=== PATIENT | female | born 1940 | race Caucasian/White ===

== ENCOUNTER 2016-04-19 16:46 | Observation (INO) | payer MEDICARE ==
[2016-04-19 17:36] LABS: ABSOLUTE NEUTROPHIL COUNT 5.2 K/mm3 (1.8-7.7); BASO % 0.3 % (0.2-1.0); EOS # 0.1 (0.0-0.5); EOS % 1.5 % (0.9-2.9); HEMATOCRIT 44.9 % (37.0-47.0); HEMOGLOBIN 14.5 gm/l (12.0-16.0); IMM NEUT% 0.3 % (0-1); MEAN CELL VOLUME 91.6 fl (81.0-99.0); MEAN CORPUSCULAR HEMOGLOBIN 29.6 pg (27.0-31.0); MEAN CORPUSCULAR HGB CONC 32.3 g/dl (33.0-37.0); MEAN PLATELET VOLUME 14.1 fl (7.4-10.4); MONO # 0.4 (0.0-0.8); MONO % 5.2 % (4-12); NEUT % 66.7 % (43-75); PLATELET COUNT 102 K/mm3 (130-400); RED CELL DISTRIBUTION WIDTH 13.9 % (11.5-14.5)
[2016-04-19] MEDS ORDERED: ASPIRIN CHEWTAB 81 MG TABLET ONE (17:47)
[2016-04-19 17:51] LABS: ALB/GLOB RATIO 1.4 (>1.0); ALBUMIN 4.1 gm/dL (3.5-5.7); CALCIUM 9.7 mg/dL (8.6-10.3)
[2016-04-19] MEDS ORDERED: NITROGLYCERIN OINT 1 G (DOSE) ONE (18:01)
[2016-04-19] MEDS ORDERED: FUROSEMIDE 40 MG/4 ML VIAL ONE (18:16)
--- NOTE | 2016-04-19 18:17 | RAD ---
04/19/2016 6:11 PM CHEST - 2 VIEWS History: Chest pain, shortness of breath. Comparison: None Findings: Two views of the chest are obtained. The lungs demonstrate bilateral small pleural effusions with associated compressive airspace disease. Underlying pneumonia cannot be excluded. There is minimal prominence of perihilar, central vasculature which may relate to venous congestion. There is suggestion of a a few Gisella B lines at the left base. Overall findings are worrisome for interstitial edema. No definite overt airspace edema is present at this time. Upper lungs are clear. The cardiomediastinal silhouette is unremarkable.. The osseous structures are intact.. IMPRESSION: Findings worrisome for pulmonary interstitial edema as detailed above..
[2016-04-19] MEDS ORDERED: REGADENOSON 0.1 MG DOSE IV ONE (18:26)
[2016-04-19 20:09] VITALS: BMI 32.1
[2016-04-19] MEDS ORDERED: MAGNESIUM HYDROXIDE 30 ML UDCUP PO PRN (20:51)
[2016-04-19] MEDS ORDERED: BLISTEX LIPSTICK 1 EACH TP PRN (20:51)
[2016-04-19] MEDS ORDERED: SODIUM CHLORIDE 0.9% 100 ML IV PRN (20:51)
[2016-04-19] MEDS ORDERED: BISACODYL 5 MG TABLET.EC PO PRN (20:51)
[2016-04-19] MEDS ORDERED: ACETAMINOPHEN 325 MG TABLET PO PRN (20:51)
[2016-04-19] MEDS ORDERED: MENTHOL/CETYLPYRD 1 EACH LOZENGE PO PRN (20:51)
[2016-04-19] MEDS ORDERED: BISACODYL 10 MG SUP PR PRN (20:51)
[2016-04-19] MEDS ORDERED: FUROSEMIDE 20 MG TABLET PO ONE (21:45)
[2016-04-19] MEDS: DOCUSATE SODIUM 100 MG CAPSULE PO SCH (21:54)
[2016-04-19] MEDS: LISINOPRIL 10 MG TABLET PO SCH (21:54)
[2016-04-20 02:13] LABS: TROPONIN I 0.03 ng/ml (0.0-0.06)
[2016-04-20 02:17] LABS: CKMB ISOENZYME 2.1 ng/ml (0.6-6.3)
[2016-04-20 06:05] LABS: ABSOLUTE NEUTROPHIL COUNT 4.5 K/mm3 (1.8-7.7); BASO % 0.4 % (0.2-1.0); EOS # 0.1 (0.0-0.5); EOS % 1.4 % (0.9-2.9); HEMATOCRIT 38.6 % (37.0-47.0); HEMOGLOBIN 12.5 gm/l (12.0-16.0); IMM NEUT% 0.1 % (0-1); LYMPH % 28.9 % (15-45); MEAN CELL VOLUME 91.7 fl (81.0-99.0); MEAN CORPUSCULAR HEMOGLOBIN 29.7 pg (27.0-31.0); MEAN CORPUSCULAR HGB CONC 32.4 g/dl (33.0-37.0); MEAN PLATELET VOLUME 14.5 fl (7.4-10.4); MONO # 0.4 (0.0-0.8); MONO % 6.1 % (4-12); NEUT % 63.1 % (43-75); PLATELET COUNT 85 K/mm3 (130-400); RED CELL DISTRIBUTION WIDTH 13.6 % (11.5-14.5)
[2016-04-20 06:25] LABS: CALCIUM 8.9 mg/dL (8.6-10.3)
--- NOTE | 2016-04-20 06:41 | HP ---
ELADIO PATRICK : 1940 DATE OF ADMISSION: April 19, 2016 CHIEF COMPLAINT: Shortness of breath. HISTORY OF PRESENT ILLNESS: For the past three weeks patient has had worsening shortness of breath, no coughing, and worsening dyspnea on exertion. It has become so bad, that she is unable to even walk across the house to go to the bathroom. She has not had an increase in the number of pillows she is using at night, and she has had some development of edema in her lower extremities. She went to see her physician, who recommended a sleep study which she had performed, and she obtained a CPAP. She used the CPAP for about a week without any improvement in her symptoms, and she presented to the emergency department for this worsening shortness of breath. She denies any abdominal pain, any trouble with urination. She does have chest pressure, feels like an elephant on her chest. She does not recall any precipitating factors with this shortness of breath when it started, and she has never had anything like this before. REVIEW OF SYSTEMS: GENERAL: No fever, chills. EENT: No congestion or throat pain. CARDIOVASCULAR: Chest pressure and edema. RESPIRATORY: Shortness of breath. Dyspnea on exertion. ABDOMEN: No abdominal pain, nausea, vomiting, or diarrhea. GENITOURINARY: No difficulties with urination. MUSCULOSKELETAL: No muscle aches or pains. NEUROLOGIC: No numbness, tingling, headaches. PAST MEDICAL HISTORY: Includes: 1. Obstructive sleep apnea. 2. History of hypertension that is untreated. She stopped the medications because she heard it was addictive. 3. She says she has had prior mini-strokes. 4. Cataracts. 5. Chronic kidney disease stage 1. 6. Gallstones. 7. Thyroid dysfunction. MEDICATIONS: 1. Herbal supplements. 2. Vitamins. She works with a [employer]. ALLERGIES TO MEDICATIONS: 1. PENICILLIN. 2. SULFA. FAMILY MEDICAL HISTORY: Father who of stomach cancer, a paternal grandmother who of stomach cancer. Her mother of old age and had osteoporosis. She has had a brother with a myocardial infarction and she has a sister with three different types of cancers one of them being colon cancer. 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 She currently lives with a friend, and they are going to be relocating to [place] in the next few months. PHYSICAL EXAM: GENERAL: Patient is alert and oriented, not in acute distress. She is having full word sentences. VITAL SIGNS: She has a temperature of 97.8, heart rate of 80, blood pressure of 147/78. She is saturating 95% on room air. HEENT: Normocephalic, atraumatic. No tenderness to palpitation. Mucous membranes moist. Pupils are equal, round and reactive. Her extraocular muscles are intact. There is no scleral icterus or conjunctival injection. NECK: Supple. Trachea midline. RESPIRATORY: CARDIOVASCULAR: Regular with positive S1 and S2. She has palpable pulses bilaterally radially and dorsalis pedis with trace pedal edema and trace jugular venous distention. RESPIRATORY: Clear on the right lobes, some crackles on the left lobe space. No wheezing. ABDOMEN: Soft, nontender, no rebound, no guarding. MUSCULOSKELETAL: She is moving all extremities without difficulty. They are nontender. She has 5/5 upper and lower extremity strength bilaterally. NEUROLOGIC: She is alert and oriented. LABORATORIES: White blood count 7.9, hemoglobin 14.5, hematocrit of 44.9 with a platelet count of 102. Sodium 143, potassium 3.8, chloride 108, carbon dioxide 25, BUN 13, creatinine 0.9, glucose of 111. BNP of 561, a troponin of 0.03. DIAGNOSTIC IMAGING: Chest x-ray was obtained and interpreted as findings worrisome for pulmonary interstitial edema, bilateral small pleural effusions associated with compressive airspace disease. Minimal prominence of perihilar central vasculature which may relate to venous congestion, suggestion of a few Gisella B lines at left base. No definite overt airspace edema. Upper lungs are clear. Cardiomediastinal silhouette is unremarkable. ELECTROCARDIOGRAM: Electrocardiogram was obtained and it showed a sinus rhythm with a rate of 104 beats per minute, VT interval of 137 ms, QRS duration of 96 ms with QTc of 398. She has a left axis deviation. No acute ST segment elevations or depressions are present at this time. ASSESSMENT: A 75-year-old female presenting with increasing shortness of breath, dyspnea on exertion for the past three weeks with evidence of heart failure on laboratory studies and physical exam. PLAN: 1. Acute congestive heart failure, no prior diagnosis. Difficult to know if she had an underlying myocardial infarction as it three weeks old. Enzymes are currently negative. We will repeat a second set. She received a dose of Lasix in the emergency department. I will give her a second dose and aspirin. We will start CECILE inhibitor and Lasix. Monitor inputs and outputs and obtain an echocardiogram in the morning. 2. Obstructive sleep apnea. She does not have her CPAP. We will try to get that from home. 3. History of hypertension which she is hypertensive on exam. With the Lasix and lisinopril, she should become normotensive. 4. History of cerebrovascular accident. We will monitor and have a physical therapy evaluation. 5. History of thyroid dysfunction. We will obtain a TSH and monitor. 6. She is a DO NOT INTUBATE but she would have chest compressions in the event there is a cardiac arrest situation that should arise.
--- NOTE | 2016-04-20 08:05 | PDOC43 ---
- Subjective Chief Complaint: shortness of breath Patient awake, sitting up edge of bed. Her breathing is much improved but still has chest pressure. She denies lightheadedness. Subjective: Reports Pain Tolerable, Reports Tolerating Diet Well, Reports Adequate Oral Intake, Reports Urinating Without Difficulty, Reports Chest Pain, Denies Shortness of Breath, Denies Cough, Denies Abdominal Pain, Denies Nausea, Denies Vomiting - Objective Vital Signs Temperature 97.9 F 04/20/16 07:24 Pulse Rate 61 04/20/16 07:24 Respiratory Rate 18 04/20/16 07:24 Blood Pressure 100/53 04/20/16 07:24 O2 Saturation by Pulse Oximetry 94 04/20/16 07:24 Oxygen Delivery Method Room Air Oxygen Flow Rate 0 Intake and Output 04/18/16 04/19/16 04/20/16 23:59 23:59 23:59 Intake Total 150 Output Total 1825 Balance -1675 General: Alert, Oriented x3, Cooperative, No Acute Distress HEENT: Atraumatic, PERRLA, EOMI, Mucous membr. moist/pink Lungs: Clear to Auscultation Bilaterally, Normal Air Movement, Other (crackles left base, no wheezing) Cardiovascular: Regular Rate and Rhythm, Normal S1 Abdomen: Soft, Non-Distended, No Rigid, No Tenderness, No Rebounding Extremities: No Cyanosis, No Edema, No Tenderness Neurological: Normal Speech Psych/Mental Status: Normal Mood Laboratory 04/20/16 05:30 04/20/16 05:30 04/20/16 05:30 MCHC 32.4 L Current Medications: Current meds reviewed in EMR. - Problems: Assessment/Plan (1) CHF (congestive heart failure) Qualifiers: Congestive heart failure type: unspecified congestive heart failure type Congestive heart failure chronicity: acute Qualifier Code: (I50.9) Heart failure, unspecified Status: Acute Assessment/Plan: new diagnosis with 3 weeks of increasing shortness of breath, interstitial pulmonary edema on CXR and elevated. Unsure of etiology as no evidence of acute [place]. Echocardiogram today. Continue with diuresis. Started aspirin, ACEI , diuretics (2) ANNY (obstructive sleep apnea) Status: Chronic Assessment/Plan: new diagnosis in past several weeks. Has CPAP at home. (3) Hypertension Qualifiers: Hypertension type: essential hypertension Qualifier Code: (I10) Essential (primary) hypertension Status: Chronic Assessment/Plan: untreated, patient stopped medication years ago as she was told she can be addicted to it. (4) CKD (chronic kidney disease) stage 1, GFR 90 ml/min or greater Status: Chronic Assessment/Plan: stable VTE Prophylaxis: SCD's
[2016-04-20] MEDS ORDERED: ASPIRIN (ENTERIC COATED) 81 MG TABLET.EC PO SCH (09:00)
[2016-04-20] MEDS ORDERED: FUROSEMIDE 20 MG TABLET PO SCH (09:00)
[2016-04-20] MEDS ORDERED: POTASSIUM CHLORIDE 20 MEQ TAB.PRT.SR PO SCH (09:00)
[2016-04-20] MEDS: DOCUSATE SODIUM 100 MG CAPSULE PO SCH (09:39)
[2016-04-20] MEDS: LISINOPRIL 10 MG TABLET PO SCH (09:40)
[2016-04-20] MEDS ORDERED: MAGNESIUM SULFATE 2 G/50 ML 2 G in Premix (Water) 50 ml 1 EACH IV SCH (10:30)
[2016-04-20] MEDS ORDERED: PUMP TUBING ONE (11:10)
--- NOTE | 2016-04-20 15:04 | NUC MED ---
Exam: Nuclear medicine myocardial SPECT, ejection fraction and wall motion Comparison: None Indication: Shortness of breath and new onset CHF. Technique: 12.8 mCi of technetium 99m sestamibi were administered for the rest portion of the exam and SPECT imaging was obtained per protocol. Stress was achieved via the administration of 0.4 mg of LexiScan. At maximum stress, 37.1 mCi of technetium 99m sestamibi were administered and SPECT imaging was obtained per protocol. Findings: Ejection fraction is calculated at 35%. There is akinesia of the lateral wall. No additional wall motion abnormalities are identified although global hypokinesia suggested. There is a complete, fixed perfusion defect involving the entire lateral wall reflecting a transmural infarct.. There is significant gut uptake which limits evaluation of the inferior wall, but this appears unchanged between stress and rest. Perfusion is otherwise normal. Impression: 1. Large transmural infarct involving the entire lateral wall. 2. No evidence of significant stress-induced ischemia. 3. Ejection fraction 35%. Findings discussed with Dr. Porter6 hours 04/20/2016.
--- NOTE | 2016-04-20 16:39 | PDOC36 ---
Provider Note Subject: Dietetic Aide discussion Note: Reviewed results with Dr Harris, he would accept this patient in transfer in anticipation of further evaluation of ischemic cardiomyopathy. No beds available right now, but anticipate able to transfer 04/21/16. Reviewed with patient and , they are accepting of plan.
--- NOTE | 2016-04-20 20:22 | TS ---
ELADIO PATRICK DATE OF TRANSFER: April 20, 2016 TRANSFER DIAGNOSES: Are: 1. Subacute systolic congestive heart failure attributed to ischemic cardiomyopathy. 2. Suspected subacute transmural myocardial infarction. 3. Reported intolerance to atorvastatin. 4. History of obstructive sleep apnea. 5. History of untreated hypertension. 6. Cataracts. 7. Thyroid dysfunction. 8. History of gall stones. 9. Chronic kidney disease stage 1 reported. 10. Mild thrombocytopenia. 11. Mild hypomagnesemia. 12. Mild hypokalemia. REASON FOR ADMISSION: The patient is a 75-year-old female who has had a three week history of worsening dyspnea on exertion. This did worsen so much that she is unable to walk across the house to go to the bathroom. She had developed some edema in her lower extremities and had a seen a physician more recently who had suggested a sleep study which was performed and started on CPAP. She tried this for about a week without improvement in symptoms so followed up with the emergency department for this shortness of breath. She does note some chest pressure but has not had any other symptoms such as fevers, chest pain. On admission, her labs showed a white blood cell count of 7.9, hemoglobin 14.5, platelets 102, mild thrombocytopenia. Sodium 143, potassium 3.8, chloride 108, glucose 111, calcium 9.7, magnesium 1.8. Liver enzymes are normal. Troponin 0.03, BNP of 561, CK-MB of 1.37. Her chest x-ray showed changes consistent with pulmonary interstitial edema. Her electrocardiogram had shown sinus tachycardia 104 beats per minute, MT 137, QRS 96, QTc 398, axis 22. Left atrial enlargement suggested and anteroseptal myocardial infarction with Q waves noted in V2 and V3. Patient received Nitropaste and Lasix in the emergency department. She had requested DO NOT INTUBATE status but would accept chest compressions. She had a relatively uneventful night and felt somewhat better the next morning. Her white count was 7.1, hemoglobin 12.5, platelets 85 the next morning. Her sodium was normal at 144, potassium 3.5, chloride 108, magnesium slightly low at 1.8. Troponins remained 0.03. She underwent an echocardiogram which on preliminary report showed ejection fraction of 35%. A Lexiscan Myoview perfusion study was performed showing large transmural infarct involving the entire lateral wall. No evidence of significant stress induced ischemia. Ejection fraction of 35%. Results were reviewed with the patient as well as [facility], and they graciously accepted the patient in transfer so that she could have further evaluation possibly including cardiac catheterization at [facility]. A bed became open the evening of April 20, 2016, and she is anticipated to be transferred over shortly. DISCHARGE MEDICATIONS: 1. Acetaminophen 650 mg orally every six hours as needed. 2. Aspirin 81 mg orally daily. 3. Cepacol as needed. 4. Dulcolax as needed. 5. Docusate 100 mg orally twice daily scheduled. 6. Lasix 20 mg orally daily scheduled. 7. Lisinopril 10 mg orally daily. 8. Milk of Magnesia as needed. 9. Blistex as needed. 10. Potassium chloride 20 mEq orally daily. DISCHARGE VITAL SIGNS: Temperature 97.6, pulse 75, blood pressure 126/68, respirations 18, 95% saturation on room air. INSTRUCTIONS: The patient has a lipid panel pending, but she had previously had severe weakness associated with taking this after one week. ACTIVITY: Patient is felt to be stable for transfer. Patient was accepting of recommendation to seek further medical attention. cc: [facility] Nayla Dillon N.P.
[2016-04-20 22:33] VITALS: BP 117/56
== END 2016-04-20 20:20 | disposition short-term general hospital (02) ==
LOC: ED 16:46 → MS 18:25 → INTOOBSV 18:25
PROVIDERS: ADMIT Family Medicine; ATTEND Family Medicine
DX: I13.0 Hypertensive heart and chronic kidney disease with heart failure and stage 1 through stage 4 chronic kidney disease, or unspecified chronic kidney disease (principal); I50.21 Acute systolic (congestive) heart failure; N18.1 Chronic kidney disease, stage 1; G47.33 Obstructive sleep apnea (adult) (pediatric); I10 Essential (primary) hypertension; K80.80 Other cholelithiasis without obstruction; I21.3 ST elevation (STEMI) myocardial infarction of unspecified site; D69.6 Thrombocytopenia, unspecified; E83.42 Hypomagnesemia; E87.6 Hypokalemia; E07.9 Disorder of thyroid, unspecified
CPT/HCPCS: 83880; 85025 ×2; 82553; 80048; 80053; 83735; 84443; 84484 ×2; 36415 ×2; 71020; 78452; 99284; 96374; 93306; 93017; 93005; 99285; A9270 ×10; J1940; J7050; J3475; J2785; A9500